=== PATIENT | male | born 1960 | race Caucasian/White ===

== ENCOUNTER 2018-01-10 09:25 | Outpatient (CLI) | payer BC, OTHER ==
--- NOTE | 2018-01-10 12:30 | Diagnostic Imaging Report ---
Indication: Upper abdomen/chest discomfort. Gastroesophageal reflux COMPARISON: None FINDINGS: Biphasic upper GI examination was performed with barium . Multiple fluoroscopic images were obtained in real-time. Esophagus demonstrated normal distensibility with no stricture or obvious mass. Peristalsis was impaired consistent with dysmotility. IMPRESSION: Mild to moderate impairment of esophageal motility. Number fluoroscopic images: 15 Total fluoroscopic time: One minute
== END 2018-01-10 11:25 | disposition home or self-care (01) ==
LOC: RAD 09:25
DX: K21.9 Gastro-esophageal reflux disease without esophagitis (principal)
CPT/HCPCS: 74220